=== PATIENT | female | born 1995 | race Caucasian/White ===

== ENCOUNTER 2017-09-28 02:00 | Emergency (ER) | payer BC ==
--- OUTSIDE RECORDS SUMMARY | 2017-09-28 02:13 | XMS REPORT ---
:1995 External Reference #:[id number] Author Organization [employer] Address [address] [place] [address] Phone [phone] Care Team Providers Name Role Phone Zuleyma Rogel MD Primary Care Physician Unavailable Payers Type Date Identification Numbers Payment Provider Subscriber Commercial Effective: Policy Number: BS Facets Elba Torres 2015 [id number] PayID: [id number] [address] [place] [address] Problems Date Description Provider Status Onset: 09/18/2015 Moderate depression Cheryl Adler, N.P. Active Onset: 09/18/2015 Postural orthostatic tachycardia Cheryl Adler, N.P. Active syndrome Family History Date Family Member(s) Problem(s) Comments General Arthritis General Arthritis, Osteo Father Alive And Well Age 52 Mother Alive And Well Age 52 Paternal Grandfather Pancreatic Cancer Age 78 Paternal Grandmother Lung Cancer Arthritis Age 85 Maternal Grandfather Alive And Well Age 84 Maternal Grandmother Uterine Cancer Arthritis Age 79 Social History Type Date Description Comments Marital Status Single Occupation Student ETOH Use Currently consumes alcohol 0 - 3 per week Smoking Patient has never smoked Exercise Type/Frequency Exercises regularly Walks 3 days weekly General Hx Text Allergies, Adverse Reactions, Alerts Date Description Reaction Status Severity Comments 09/15/2015 NKDA active Medications Medication Date Status Form Strength Qnty SIG Indications Ordering Provider Clotrimazole/Betam 09/04 Active Cream 1-0.05% 15gm apply 2 - 3 R21 Cheryl ethasone /2018 times daily Varn, Dipropionate as needed N.P. Neoprene Patella 02/25 Active Misc 2unit use daily M22.2x9 Aneudy Knee s as needed [place] Support/Medium for left M.DJames knee stabilizati on Fludrocortisone Active Tablets 0.1mg 90tab 1 by mouth Aneudy Acetate / s every day Axel Roland Spironolactone Active Tablets 25mg 1 by mouth Unknown /0000 every day Amoxicillin 02/25 Hx Tablets 875mg 20tab 1 tab twice J02.9 s daily x 7 Asuncion - days total M.DJames 07/16 if there is pharyngitis Tamiflu 02/21 Hx Capsules 75mg 10cap take one Stan s capsule AYANNA Hare - once daily 03/03 for days-influe nza prophylaxis Ciprofloxacin HCL 02/12 Hx Tablets 500mg 12tab take one Z71.89 Stan s tablet AYANNA Hare - twice daily 02/17 x 3 days onset of diarrhea a day for 10 days Bupropion HCL 12/03 Hx Tablets 100mg 60tab take 1 F32.9 Cheryl /2017 s tablet by Nayely, - mouth two N.P. 02/12 times daily Escitalopram 05/13 Hx Tablets 10mg 30tab Take 1 Stan Oxalate s Tablet By AYANNA Hare - Mouth Every Escitalopram 03/02 Hx Tablets 20mg 30tab 1 by mouth Cheryl Oxalate s every day Varn, - N.P. 05/13 Medroxyprogesteron 02/23 Hx Tablets 10mg 10tab one by Cheryl e Acetate s mouth twice Varn, - a day x 5 N.P. Medrol 01/15 Hx TBPK 4mg 21uni as directed R21 ts on package AYANNA Hare - 02/13 Escitalopram 09/21 Hx Tablets 10mg 30tab 1 by mouth Cheryl Oxalate s every day Varn, - N.P. 03/02 Ferrex 28 09/14 Hx Tablets 30tab 1 by mouth R55 Cheryl /2016 s every day Vardeb, - (taking OTC N.P. 02/13 at this /2016 time) Nortriptyline HCL 00 Hx Capsules 10mg 1 tab every Unknown /0000 night for 3 - weeks then 10/09 1 other day Doxycycline Hx Tablets 100mg 60tab one tab q12 Unknown Monohydrate /0000 s hours - 05/11 Midodrine HCL Hx Tablets 2.5mg take one Unknown /0000 tablet - three times 02/13 daily. /2015 Medications Administered in Office Medication Date Status Form Strength Qnty SIG Indications Ordering Provider Influenza Virus 03/03/ Administered Injection Unknown Vaccine 2015 Meningococcal 09/16/ Administered Injection Unknown B,Unspecified 2014 Meningococcal,Un 09/13/ Administered Injection Unknown specified 2014 Influenza Virus 01/27/ Administered Injection Unknown Vaccine 2012 Influenza Virus 12/09/ Administered Injection Unknown Vaccine 2011 Meningococcal,Un 12/05/ Administered Injection Unknown specified 2010 Polio,Unspecifie 11/22/ Administered Injection Unknown d 2000 Polio,Unspecifie 03/18/ Administered Injection Unknown d 1998 Polio,Unspecifie 01/05/ Administered Injection Unknown d 1996 Polio,Unspecifie 10/01/ Administered Injection Unknown d 1996 Immunizations CPT Code Status Date Vaccine Lot # [id number] Given 09/16/2014 Varicella (Chicken Pox) Immunization 02521 Given 12/05/2010 Gardasil (HPV) 23891 Given 12/05/2010 Hepatitis A Vaccine Pediatric/Adolescent Dosage 2 Dose Schedule 57746 Given 06/24/2010 Gardasil (HPV) 62859 Given 08/25/2009 Gardasil (HPV) 47137 Given 06/24/2009 Hepatitis A Vaccine Pediatric/Adolescent Dosage 2 Dose Schedule 52689 Given 10/28/2007 Tdap - Tetanus/Diptheria/Acellular Pertussis 49327 Given 06/22/2002 Varicella (Chicken Pox) Immunization 90252 Given 11/22/2000 Measles Mumps And Rubella MMR 00249 Given 11/22/2000 DTaP Vaccine Younger Than 7 08082 Given 03/18/1998 Hep B Pediatric/Adolescent 66071 Given 11/04/1997 Hib Hboc Conjugate 4 Dose Schedule 43808 Given 11/04/1997 Measles Mumps And Rubella MMR 86222 Given 05/20/1997 Hep B Pediatric/Adolescent 84860 Given 03/18/1997 DTaP Vaccine Younger Than 7 20339 Given 03/18/1997 Hib Hboc Conjugate 4 Dose Schedule 92320 Given 01/05/1997 DTaP Vaccine Younger Than 7 74398 Given 01/05/1997 Hib Hboc Conjugate 4 Dose Schedule 32106 Given 1996 Hep B Pediatric/Adolescent 67499 Given 1996 DTaP Vaccine Younger Than 7 08209 Given 1996 Hib Hboc Conjugate 4 Dose Schedule 70755 Given 1996 Hep B Pediatric/Adolescent Vital Signs Date Vital Result Comment 09/04/2017 Height 64.5 inches 5'4.50" Weight 126.00 lb Heart Rate 64 /min BP Systolic 100 mmHg BP Diastolic 60 mmHg Body Temperature 97.0 F O2 % BldC Oximetry 98 % BMI (Body Mass Index) 21.3 kg/m2 07/17/2017 Height 64.5 inches 5'4.50" Weight 126.00 lb Heart Rate 84 /min BP Systolic Sitting 124 mmHg BP Diastolic Sitting 82 mmHg Respiratory Rate 14 /min Body Temperature 97.9 F Pain Level 0 BMI (Body Mass Index) 21.3 kg/m2 02/25/2017 Height 64.5 inches 5'4.50" Weight 124.38 lb Heart Rate 80 /min BP Systolic Sitting 100 mmHg BP Diastolic Sitting 60 mmHg Respiratory Rate 14 /min Pain Level 1 BMI (Body Mass Index) 21.0 kg/m2 02/12/2017 Height 64.5 inches 5'4.50" Weight 125.00 lb Heart Rate 72 /min BP Systolic Sitting 100 mmHg BP Diastolic Sitting 62 mmHg Body Temperature 97.8 F O2 % BldC Oximetry 98 % BMI (Body Mass Index) 21.1 kg/m2 12/03/2016 Weight 125.25 lb Heart Rate 69 /min BP Systolic 90 mmHg BP Diastolic 60 mmHg Body Temperature 98.5 F O2 % BldC Oximetry 97 % 10/09/2016 Height 64.5 inches 5'4.50" Weight 120.50 lb Heart Rate 88 /min BP Systolic Sitting 92 mmHg BP Diastolic Sitting 70 mmHg Respiratory Rate 14 /min Pain Level 0 BMI (Body Mass Index) 20.4 kg/m2 08/23/2016 Height 64.5 inches 5'4.50" Weight 122.25 lb Heart Rate 80 /min BP Systolic Sitting 120 mmHg BP Diastolic Sitting 82 mmHg Respiratory Rate 14 /min Pain Level 0 BMI (Body Mass Index) 20.7 kg/m2 07/18/2016 Height 64.5 inches 5'4.50" Weight 118.00 lb Heart Rate 100 /min BP Systolic Sitting 110 mmHg BP Diastolic Sitting 64 mmHg Respiratory Rate 14 /min Pain Level 0 BMI (Body Mass Index) 19.9 kg/m2 05/11/2016 Weight 117.00 lb Heart Rate 98 /min BP Systolic 126 mmHg BP Diastolic 88 mmHg O2 % BldC Oximetry 98 % 02/14/2016 Height 64.5 inches 5'4.50" Weight 113.00 lb Heart Rate 84 /min BP Systolic Sitting 120 mmHg BP Diastolic Sitting 80 mmHg Body Temperature 97.9 F Pain Level 0 BMI (Body Mass Index) 19.1 kg/m2 01/16/2016 Weight 112.00 lb Heart Rate 88 /min BP Systolic Sitting 102 mmHg BP Diastolic Sitting 68 mmHg Respiratory Rate 15 /min Body Temperature 97.8 F O2 % BldC Oximetry 98 % 10/06/2015 Height 64.5 inches 5'4.50" 10/06/2015 Weight 110.00 lb Heart Rate 92 /min BP Systolic Sitting 98 mmHg BP Diastolic Sitting 60 mmHg O2 % BldC Oximetry 98 % 09/15/2015 Weight 112.25 lb Heart Rate 82 /min BP Systolic Sitting 104 mmHg BP Diastolic Sitting 82 mmHg O2 % BldC Oximetry 98 % 09/01/2015 Height 63 inches 5'3" Weight 114.00 lb Heart Rate 84 /min BP Systolic Sitting 118 mmHg BP Diastolic Sitting 70 mmHg Body Temperature 98.2 F O2 % BldC Oximetry 98 % BMI (Body Mass Index) 20.2 kg/m2 Results Test Date Test Result H/L Range Note Laboratory test finding 07/25/2017 Erythrocyte Sed Rate 18 mm/Hr High 0- 14 1 C Reactive Protein < 1.00 mg/L < 5.00 2 Nuclear AB (Neri) By Ifa 07/25/2017 Nuclear Ab (Neri) by Ifa, Positive 1:160 3 Igg IgG Neri Titer: 1:160 Neri Pattern: Nuclear Dots 4 Laboratory test finding 07/25/2017 Anti Double Stranded Dna AB <12.3 IU/mL 5 Complement C3 110 mg/dL 75 - 175 6 Complement C4 17 mg/dL 14 - 40 7 Cortisol 5.28 g/dL 8 CBC Auto Diff 07/25/2017 White Blood Count 6.6 10^3/uL 3.5-10.8 Red Blood Count 4.20 10^6/uL 4.0-5.4 Hemoglobin 13.1 g/dL 12.0-16.0 Hematocrit 38 % 35-47 Mean Corpuscular Volume 91 fL 80-97 Mean Corpuscular Hemoglobin 31 pg 27-31 Mean Corpuscular HGB Conc 34 g/dL 31-36 Red Cell Distribution Width 12 % 10.5-15 Platelet Count 215 10^3/uL 150-450 Mean Platelet Volume 8.6 um3 7.4-10.4 Abs Neutrophils 4.1 10^3/uL 1.5-7.7 Abs Lymphocytes 1.8 10^3/uL 1.0-4.8 Abs Monocytes 0.5 10^3/uL 0-0.8 Abs Eosinophils 0.2 10^3/uL 0-0.6 Abs Basophils 0 10^3/uL 0-0.2 Abs Nucleated RBC 0 10^3/uL Granulocyte % 62.4 % 38-83 Lymphocyte % 27.1 % 25-47 Monocyte % 7.3 % High 0-7 Eosinophil % 2.6 % 0-6 Basophil % 0.6 % 0-2 Nucleated Red Blood Cells % 0 Comp Metabolic Panel 07/25/2017 Sodium 137 mmol/L Low 139-145 Potassium 4.1 mmol/L 3.5-5.0 Chloride 101 mmol/L 101-111 Co2 Carbon Dioxide 27 mmol/L 22-32 Anion Gap 9 mmol/L 2-11 Glucose 80 mg/dL 70-100 Blood Urea Nitrogen 18 mg/dL 6-24 Creatinine 0.60 mg/dL 0.51-0.95 BUN/Creatinine Ratio 30.0 High 8-20 Calcium 9.6 mg/dL 8.6-10.3 Total Protein 7.2 g/dL 6.4-8.9 Albumin 4.7 g/dL 3.2-5.2 Globulin 2.5 g/dL 2-4 Albumin/Globulin Ratio 1.9 1-3 Total Bilirubin 0.30 mg/dL 0.2-1.0 Alkaline Phosphatase 49 U/L 34-104 Alt 13 U/L 7-52 Ast 16 U/L 13-39 Egfr Non- 127.5 >60 Egfr 163.9 >60 9 Laboratory test finding 07/25/2017 Vitamin D, 1,25 Dihydroxy 60 pg/mL 18- 78 10 Vitamin B12 425 pg/mL 180-914 11 Laboratory test 02/25/2017 Culture Throat SEE RESULT BELOW 12, 13 finding Laboratory test 10/09/2016 Erythrocyte Sed Rate 14 mm/Hr 0-14 14 finding C Reactive Protein < 1.00 mg/L < 5.00 15 CBC Auto Diff 10/09/2016 White Blood Count 6.0 10^3/uL 3.5-10.8 Red Blood Count 4.23 10^6/uL 4.0-5.4 Hemoglobin 13.3 g/dL 12.0-16.0 Hematocrit 39 % 35-47 Mean Corpuscular Volume 92 fL 80-97 Mean Corpuscular Hemoglobin 32 pg High 27-31 Mean Corpuscular HGB Conc 34 g/dL 31-36 Red Cell Distribution Width 13 % 10.5-15 Platelet Count 197 10^3/uL 150-450 Mean Platelet Volume 8 um3 7.4-10.4 Abs Neutrophils 3.6 10^3/uL 1.5-7.7 Abs Lymphocytes 1.8 10^3/uL 1.0-4.8 Abs Monocytes 0.5 10^3/uL 0-0.8 Abs Eosinophils 0.1 10^3/uL 0-0.6 Abs Basophils 0 10^3/uL 0-0.2 Abs Nucleated RBC 0 10^3/uL Granulocyte % 59.6 % 38-83 Lymphocyte % 29.9 % 25-47 Monocyte % 7.8 % 1-9 Eosinophil % 1.9 % 0-6 Basophil % 0.8 % 0-2 Nucleated Red Blood Cells % 0 Comp Metabolic Panel 10/09/2016 Sodium 138 mmol/L 133-145 Potassium 4.6 mmol/L 3.5-5.0 Chloride 101 mmol/L 101-111 Co2 Carbon Dioxide 32 mmol/L 22-32 Anion Gap 5 mmol/L 2-11 Glucose 80 mg/dL 70-100 Blood Urea Nitrogen 13 mg/dL 6-24 Creatinine 0.64 mg/dL 0.51-0.95 BUN/Creatinine Ratio 20.3 High 8-20 Calcium 10.0 mg/dL 8.6-10.3 Total Protein 7.2 g/dL 6.4-8.9 Albumin 4.9 g/dL 3.2-5.2 Globulin 2.3 g/dL 2-4 Albumin/Globulin Ratio 2.1 1-3 Total Bilirubin 0.40 mg/dL 0.2-1.0 Alkaline Phosphatase 56 U/L 34-104 Alt 20 U/L 7-52 Ast 23 U/L 13-39 Egfr Non- 118.3 >60 Egfr 152.1 >60 16 Laboratory test finding 10/09/2016 Cortisol 10.01 g/dL 17 Vitamin D, 1,25 Dihydroxy 87 pg/mL 18-78 18 TSH (Thyroid Stim Horm) 2.02 mcIU/mL 0.34-5.60 19 Celiac Hla DQ1/DQ2 10/09/2016 Hla-Dqa1 SEE BELOW 20 Hla-DQB1 SEE BELOW 21 Celiac Gene Pairs Present? Yes Celiac Gene Interpretation See Comment 22 Nuclear AB (Neri) By Ifa 10/09/2016 Nuclear Ab (Neri) by Ifa, Positive 1:160 23 Igg IgG Neri Titer: 1:80 Neri Pattern: Speckled Neri Titer 2: 1:160 Neri Pattern 2: Nuclear Dots 24 Thyroid Function [place] 07/25/2016 Thyroid Stim Hormone 1.2 mIU/L 0.5- 4.3 25 Laboratory test finding 07/25/2016 HCG < 0.60 mIU/mL 26 Prolactin 4.3 ng/mL 1.0-25.0 FSH 3.2 mIU/mL 27 Lutenizing Hormone 3.2 mcIU/mL 28 Nuclear AB (Neri) By Ifa 07/25/2016 Nuclear Ab (Neri) by Ifa, Positive 1:320 29 Igg IgG Neri Titer: 1:320 Neri Pattern: Nuclear Dots 30 Laboratory test finding 07/25/2016 Complement C3 103 mg/dL 75 - 175 31 Complement C4 16 mg/dL 14 - 40 32 C Reactive Protein < 1.00 mg/L < 5.00 33 Anti Double Stranded Dna AB <12.3 IU/mL 34 Lyme Western Blot 02/14/2016 Lyme Disease IgG Ab WB Negative Negative Lyme Disease IgG Bands Present No bands detecte <SEE NOTE> kDa 35 Lyme Disease IgM Ab WB Negative Negative Lyme Disease IgM Bands Present No bands detecte <SEE NOTE> kDa 36 Lyme Disease Interpretation See Comment 37 Laboratory test finding 02/14/2016 TSH (Thyroid Stim Horm) 1.05 mcIU/mL 0.34-5.60 Free T4 (Free Thyroxine) 0.76 ng/dL 0.61-1.12 T3 Free 2.70 pg/mL 2.5-3.9 Free Estradiol 02/14/2016 Percent Free Estradiol 1.6 % 38 Free Estradiol 0.51 pg/mL 39 Sex Hormone Binding Globulin 88.9 nmol/L 40 Total Estradiol 32 pg/mL 41 FSH And LH 02/14/2016 FSH (Follicle Stim Hormone) 6.2 mIU/mL 42 LH (Lutenizing Hormone) 4.7 ?IU/mL 43 Laboratory test finding 02/14/2016 C Reactive Protein < 1.00 mg/L < 5.00 44 Thyroglobulin AB <1.8 IU/mL <4.0 45 Celiac Panel 02/14/2016 Tissue Transglutaminase IgA Ab <1.2 U/mL 46 Immunoglobulin A 132 mg/dL 61 - 356 Celiac Interpretation See Comment 47 Laboratory test finding 02/14/2016 Nuclear Ab (Neri) by Ifa, 1:160 <1:40 48 IgG CBC Auto Diff 01/16/2016 White Blood Count 4.0 10^3/uL 3.5-10.8 Red Blood Count 3.95 10^6/uL Low 4.0-5.4 Hemoglobin 12.7 g/dL 12.0-16.0 Hematocrit 36 % 35-47 Mean Corpuscular Volume 92 fL 80-97 Mean Corpuscular Hemoglobin 32 pg High 27-31 Mean Corpuscular HGB Conc 35 g/dL 31-36 Red Cell Distribution Width 13 % 10.5-15 Platelet Count 182 10^3/uL 150-450 Mean Platelet Volume 9 um3 7.4-10.4 Abs Neutrophils 2.1 10^3/uL 1.5-7.7 Abs Lymphocytes 1.5 10^3/uL 1.0-4.8 Abs Monocytes 0.3 10^3/uL 0-0.8 Abs Eosinophils 0.1 10^3/uL 0-0.6 Abs Basophils 0 10^3/uL 0-0.2 Abs Nucleated RBC 0 10^3/uL Granulocyte % 52.0 % 38-83 Lymphocyte % 36.6 % 25-47 Monocyte % 7.6 % 1-9 Eosinophil % 3.2 % 0-6 Basophil % 0.6 % 0-2 Nucleated Red Blood Cells % 0.1 Cardiolipin Igg/Igm 10/06/2015 Phospholipid Ab IgM, S < 4.0 MPL 49 Phospholipid Ab IgG < 4.0 GPL 50 Celiac Panel 10/06/2015 Tissue Transglutaminase IgA Ab <1.2 U/mL 51 Immunoglobulin A 133 mg/dL 61 - 356 Celiac Interpretation See Comment 52 Laboratory test finding 10/06/2015 Aldolase 4.6 U/L <7.7 53 Anti Nuclear Antibody 2.5 U 54 Anca Panel For Vasculitis 10/06/2015 Myeloperoxidase AB <0.2 U 55 Proteinase 3 AB <0.2 U 56 Miriam Igg AB Reflex 10/06/2015 SS-A/Ro Antibody <0.2 U 57 SS-B/La Antibody <0.2 U 58 Sm (Prieto) IgG Antibody <0.2 U 59 U1-nRNP Antibody <0.2 U 60 Scl-70 (Scleroderma) Antibody <0.2 U 61 Trena-1 Antibody <0.2 U 62 Laboratory test finding 10/06/2015 Anti Double Stranded Dna AB <12.3 IU/mL 63 C Reactive Protein < 1.00 mg/L < 5.00 64 Erythrocyte Sed Rate 16 mm/Hr High 0-14 Complement C3 76 mg/dL 75 - 175 65 Complement C4 11 mg/dL 14 - 40 66 Creatine Kinase(CK) 48 U/L 10-223 Igg Subclasses 10/06/2015 Total IgG 942 mg/dL 767 - 1590 Immunoglobulin G1 512 mg/dL 341 - 894 Immunoglobulin G2 253 mg/dL 171 - 632 Immunoglobulin G3 45.6 mg/dL 67 Immunoglobulin G4 9.1 mg/dL 68 Laboratory test finding 10/06/2015 T3 Free 2.80 pg/mL 2.5-3.9 Methylmalonic Acid Mma 0.19 nmol/mL <=0.40 69 Cortisol 6.31 ?g/dL 70 Ferritin 21.4 ng/mL 11-307 Angiotensin Converting Enzyme 23 U/L 8 - 53 71 Cyclic Citrullinated Pep Igg <15.6 U 72 Hla B27 10/06/2015 Hla B27 Negative 73 Hla B27 Interp See Comment 74 Laboratory test 10/06/2015 Immunoglobulin G (Igg) TNP () 75 finding Laboratory test 09/01/2015 TSH (Thyroid Stim Horm) 0.55 mcIU/mL 0.34- 5.60 finding Vitamin B12 437 pg/mL 180-914 76 Anti Nuclear Antibody 2.8 U 77 Lyme Disease Serology Positive Negative 78 Rheumatoid Factor <15 IU/mL <15 79 Cyclic Citrullinated Pep Igg 17.6 U 80 Abdulkadir Sparrow Comprehensive 09/01/2015 Ebv Capsid Ag IgG Ab Positive Negative Ebv Capsid Ag IgM Ab Negative Negative Abdulkadir-Sparrow Nuclear Antigen Positive Negative Laboratory test finding 09/01/2015 Vitamin D Total 25(Oh) 30.0 ng/mL 30- 50 Lyme Western Blot 09/01/2015 Lyme Disease IgG Ab WB Negative Negative Lyme Disease IgG Bands Present p66, p41, kDa Lyme Disease IgM Ab WB Negative Negative Lyme Disease IgM Bands Present No bands detecte <SEE NOTE> kDa 81 Lyme Disease Interpretation See Comment 82 GC/Chlamydia Amplified Rna 09/01/2015 Chlamydia trachomatis Rna Negative Negative Neisseria gonorrhoeae (GC) Rna Negative Negative GC/Chlamydia Amplified Rna 09/01/2015 Chlamydia trachomatis Negative Negative 83 Rna Neisseria gonorrhoeae (GC) Rna Negative Negative 83 Iron & Iron Binding Capacity 09/01/2015 Iron 77 g/dL 50-212 Unsaturated Iron Binding 347 g/dL Total Iron Binding Capacity 424 g/dL 250-450 % Iron Saturation 18 % 15-55 Laboratory test finding 09/01/2015 Ferritin 11.0 ng/mL 11-307 Comp Metabolic Panel 09/01/2015 Sodium 139 mmol/L 133-145 Potassium 4.4 mmol/L 3.5-5.0 Chloride 103 mmol/L 101-111 Co2 Carbon Dioxide 30 mmol/L 22-32 Anion Gap 6 mmol/L 2-11 Glucose 82 mg/dL 70-100 Blood Urea Nitrogen 8 mg/dL 6-24 Creatinine 0.73 mg/dL 0.51-0.95 BUN/Creatinine Ratio 11.0 8-20 Calcium 9.4 mg/dL 8.6-10.3 Total Protein 6.9 g/dL 6.4-8.9 Albumin 4.3 g/dL 3.2-5.2 Globulin 2.6 g/dL 2-4 Albumin/Globulin Ratio 1.7 1-3 Total Bilirubin 0.40 mg/dL 0.2-1.0 Alkaline Phosphatase 37 U/L 34-104 Alt 22 U/L 7-52 Ast 21 U/L 13-39 Egfr Non- 102.7 >60 Egfr 132.1 >60 84 CBC Auto Diff 09/01/2015 White Blood Count 3.7 10^3/uL 3.5-10.8 Red Blood Count 4.07 10^6/uL 4.0-5.4 Hemoglobin 12.1 g/dL 12.0-16.0 Hematocrit 37 % 35-47 Mean Corpuscular Volume 90 fL 80-97 Mean Corpuscular Hemoglobin 30 pg 27-31 Mean Corpuscular HGB Conc 33 g/dL 31-36 Red Cell Distribution Width 13 % 10.5-15 Platelet Count 258 10^3/uL 150-450 Mean Platelet Volume 9 um3 7.4-10.4 Abs Neutrophils 1.9 10^3/uL 1.5-7.7 Abs Lymphocytes 1.5 10^3/uL 1.0-4.8 Abs Monocytes 0.2 10^3/uL 0-0.8 Abs Eosinophils 0.1 10^3/uL 0-0.6 Abs Basophils 0 10^3/uL 0-0.2 Abs Nucleated RBC 0 10^3/uL Granulocyte % 50.8 % 38-83 Lymphocyte % 39.9 % 25-47 Monocyte % 5.4 % 1-9 Eosinophil % 2.6 % 0-6 Basophil % 1.3 % 0-2 Nucleated Red Blood Cells % 0 1 Please check labs this week 2 Acute inflammation: >10.00 3 REFERENCE VALUE <1:80 (Negative) 4 Test Performed by: [address] [address] 5 REFERENCE VALUE <30.0 (Negative) Test Performed by: [address] [address] 6 Test Performed by: [address] [address] 7 Test Performed by: [address] [address] 8 AM 8.7-22.4 PM <10 9 Because ethnic data is not always readily available, this report includes an eGFR for both -Americans and non- Americans. The National Kidney Disease Education Program (NKDEP) does not endorse the use of the MDRD equation for patients that are not between the ages of 18 and 70, are , have extremes of body size, muscle mass, or nutritional status, or are non- or non-. According to the National Kidney Foundation, irrespective of diagnosis, the stage of the disease is based on the level of kidney function: Stage Description GFR(mL/min/1.73 m(2)) 1 Kidney damage with normal or decreased GFR 90 2 Kidney damage with mild decrease in GFR 60-89 3 Moderate decrease in GFR 30-59 4 Severe decrease in GFR 15-29 5 Kidney failure <15 (or dialysis) 10 ADDITIONAL INFORMATION This test was developed and its performance characteristics determined by [facility] in a manner consistent with CLIA requirements. This test has not been cleared or approved by the U.S. Food and Drug Administration. Test Performed by: [facility] [address] [place] [address] 11 Normal Range 180 to 914 Indeterminate Range 145 to 180 Deficient Range <145 12 [id number] 13 SEE RESULT BELOW Name: JANETH TORRES : [address]: Aneudy Roland MD Acct: [id number] Unit: [id number] AGE: 21 Location: [facility] Re02/25/17 SEX: F Status: REG REF SPEC: [id number] JOY: 02/25/17-[address] [facility] [address]: Aneudy Roland MD REQ: [id number] RECD: 02/25/17 STATUS: COMP _ SOURCE: THROAT SPDESC: ORDERED: Throat Culture COMMENTS: [id number] Procedure Result Reported Site Throat Culture Final 02/27/17- 1131 ML Organism 1 NORMAL LAST Quantity 3+ Throat cultures are clinically indicated to detect the presence of group A strep, arcanobacterium and yeast. In certain cases, predominating organisms will be reported. * ML - MAIN LAB ([facility]) . END OF REPORT * ML=Testing performed at Main Lab DEPARTMENT OF PATHOLOGY, [address] [place] [address] Bartolome Palacios M.D. Director [facility] # [id number] 14 Please check this week 15 Acute inflammation: >10.00 16 Because ethnic data is not always readily available, this report includes an eGFR for both -Americans and non- Americans. The National Kidney Disease Education Program (NKDEP) does not endorse the use of the MDRD equation for patients that are not between the ages of 18 and 70, are , have extremes of body size, muscle mass, or nutritional status, or are non- or non-. According to the National Kidney Foundation, irrespective of diagnosis, the stage of the disease is based on the level of kidney function: Stage Description GFR(mL/min/1.73 m(2)) 1 Kidney damage with normal or decreased GFR 90 2 Kidney damage with mild decrease in GFR 60-89 3 Moderate decrease in GFR 30-59 4 Severe decrease in GFR 15-29 5 Kidney failure <15 (or dialysis) 17 AM 8.7-22.4 PM <10 18 ADDITIONAL INFORMATION This test was developed and its performance characteristics determined by [facility] in a manner consistent with CLIA requirements. This test has not been cleared or approved by the U.S. Food and Drug Administration. Test Performed by: [id number] - [address] [address] 19 Please check this week 20 RESULT: 01:02,05:01 REFERENCE VALUE Not Applicable 21 RESULT: 02:01,06:02 DQ Serologic Equivalent: 2,6 REFERENCE VALUE Not Applicable 22 These genes are permissive for celiac disease. The absence of HLA celiac permissive genes would make the presence of celiac disease unlikely. However, these genes can also be present in the normal population. ADDITIONAL INFORMATION Method: Molecular typing of HLA antigens performed using reverse SSOP and/or SSP methods, reported as serological equivalents and low to medium resolution molecular values. Performing Laboratory CLIA# [id number] Test Performed by: [place] [id number] REFERENCE VALUE <1:80 (Negative) 24 Test Performed by: [place] [address] 25 Test Performed by: [place] [address] 26 <5.0 Negative 5.0 - 25.0 Indeterminate (Repeat testing recommended after 72 hours) >25.0 Positive Perimenopausal women can display HCG levels of up to 20 mIU/mL 27 Normally menstruating females - Follicular phase 3 - 9 - Mid-cycle peak 4 - 23 - Luteal phase 1 - 6 Postmenopausal females 16 - 114 28 Normally menstruating females - Follicular Phase 1 - 18 - Mid-Cycle Peak 24 - 105 - Luteal Phase 0.6 - 20 Postmenopausal females 15 - 62 29 REFERENCE VALUE <1:80 (Negative) 30 Test Performed by: [place] [address] 31 Test Performed by: [place] [address] 32 Test Performed by: [place] [address] 33 Acute inflammation: >10.00 34 REFERENCE VALUE <30.0 (Negative) Test Performed by: [place] [address] 35 No bands detected 36 No bands detected 37 Specific serologic response to B. burgdorferi infection is not detected, but cannot rule out early infection during which low or undetectable antibody levels to B. burgdorferi may be present. If clinically indicated, a new serum specimen should be submitted in 7-14 days. ADDITIONAL INFORMATION CDC criteria require >=5 bands for IgG or >=2 bands for IgM for the Immunoblot to be considered positive. Bands (e.g.,p41) may be detected in patients without Lyme disease, and patterns not meeting the CDC criteria should be interpreted with caution. Immunoblot should be ordered only on specimens that are positive or equivocal by a FDA-licensed Lyme disease antibody screening test (e.g., EIA). Test Performed by: [place] [address] Drug Room Operator: Shalom Clayton II, M.D., Ph.D. 38 Reference Range: Adult Females: 1.6 - 3.6 39 Reference Range: Adult Females: 0.6 - 7.1 40 Reference Range: Pubertal: 36.0 - 125.0 20 - 49y: 24.6 - 122.0 >49y: 17.3 - 125.0 Test Performed by: [facility] [address] [place] [address] 41 Reference Range: Adult Females Follicular: 30 - 100 Luteal: 70 - 300 Postmenopausal: <15 42 Normally menstruating females - Follicular phase 3 - 9 - Mid-cycle peak 4 - 23 - Luteal phase 1 - 6 Postmenopausal females 16 - 114 43 Normally menstruating females - Follicular Phase 1 - 18 - Mid-Cycle Peak 24 - 105 - Luteal Phase 0.6 - 20 Postmenopausal females 15 - 62 44 Acute inflammation: >10.00 45 ADDITIONAL INFORMATION The thyroglobulin antibody testing method is an immunoenzymatic assay manufactured by [employer] and performed on the [employer] DXI 800. Values obtained from different assay methods or kits may be different and cannot be used interchangeably. The results cannot be interpreted as absolute evidence for the presence or absence of malignant disease. Test Performed by: [place] [address] Drug Room Operator: Shalom Clayton II, M.D., Ph.D. 46 REFERENCE VALUE <4.0 (Negative) Test Performed by: [place] [address] Drug Room Operator: Shalom Clayton II, M.D., Ph.D. 47 Negative serology. Celiac disease unlikely. However, approximately 10% of patients with celiac disease are seronegative. Also, patients who are already adhering to a gluten-free diet may be seronegative. If celiac disease is highly clinically suspected, consider HLA-DQ typing. Test Performed by: [facility] [address] Drug Room Operator: Shalom Clayton II, M.D., Ph.D. 48 Mixed Homogeneous and Speckled pattern. INTERPRETIVE INFORMATION: NERI by IFA, IgG Anti-nuclear antibodies (NERI) are seen in a variety of systemic rheumatic diseases and are determined by indirect fluorescence assay (IFA) using HEp-2 substrate with an IgG-specific conjugate. NERI titers less than or equal to 1:80 have variable relevance while titers greater than or equal to 1:160 are considered clinically significant. These antibodies may precede clinical disease onset; however, healthy individuals and those with advanced age have been reported to be positive for NERI. When observed, one of the five basic patterns is reported: homogeneous, peripheral/rim, speckled, centromere, or nucleolar. If cytoplasmic fluorescence is observed, it is noted. IFA methodology is subjective and has occasionally been shown to lack sensitivity for anti-SSA/Ro antibodies. Negative results do not necessarily rule out the presence of SSc. If clinical suspicion remains, consider further testing for U3-TOBACCO ROLLER, PM/Scl, or Th/To antibodies associated with SSc. Performed by [facility], [address] [place] [address] [email or web address], Issa Jimenez MD - Lab. Director Test Performed by: [facility] [address] [place] [address] 49 REFERENCE VALUE <10.0 (Negative) 50 REFERENCE VALUE <10.0 (Negative) Test Performed by: [place] [address] Drug Room Operator: Shalom Clayton II, M.D., Ph.D. 51 REFERENCE VALUE <4.0 (Negative) Test Performed by: [place] [address] Drug Room Operator: Shalom Clayton II, M.D., Ph.D. 52 Negative serology. Celiac disease unlikely. However, approximately 10% of patients with celiac disease are seronegative. Also, patients who are already adhering to a gluten-free diet may be seronegative. If celiac disease is highly clinically suspected, consider HLA-DQ typing. Test Performed by: [place] [address] Drug Room Operator: Shalom Clayton II, M.D., Ph.D. 53 Test Performed by: [place] [address] Drug Room Operator: Shalom Clayton II, M.D., Ph.D. 54 Interpretation: Weak Positive (1.1-2.9) REFERENCE VALUE <=1.0 (Negative) Test Performed by: [place] [address] Drug Room Operator: Shalom Clayton II, M.D., Ph.D. 55 REFERENCE VALUE <0.4 (Negative) 56 REFERENCE VALUE <0.4 (Negative) Test Performed by: [address] [address] Drug Room Operator: Shalom Clayton II, M.D., Ph.D. 57 REFERENCE VALUE <1.0 (Negative) 58 REFERENCE VALUE <1.0 (Negative) 59 REFERENCE VALUE <1.0 (Negative) 60 REFERENCE VALUE <1.0 (Negative) 61 REFERENCE VALUE <1.0 (Negative) 62 REFERENCE VALUE <1.0 (Negative) Test Performed by: [address] [address] Drug Room Operator: Shalom Clayton II, M.D., Ph.D. 63 REFERENCE VALUE <30.0 (Negative) Test Performed by: [place] [address] Drug Room Operator: Shalmo Clayton II, M.D., Ph.D. 64 Acute inflammation: >10.00 65 Test Performed by: [place] [address] Drug Room Operator: Shalom Clayton II, M.D., Ph.D. 66 Test Performed by: [place] [address] Drug Room Operator: Shalom Clayton II, M.D., Ph.D. 67 REFERENCE VALUE 18.4 - 106.0 68 REFERENCE VALUE 2.4 - 121.0 Test Performed by: [place] [address] Drug Room Operator: Shalom Clayton II, M.D., Ph.D. 69 Test Performed by: [place] [address] Drug Room Operator: Shalom Clayton II, M.D., Ph.D. 70 AM 8.7-22.4 PM <10 71 Test Performed by: [place] [address] Drug Room Operator: Shalom Clayton II, M.D., Ph.D. 72 REFERENCE VALUE <20.0 (Negative) Test Performed by: [place] [address] Drug Room Operator: Shalom Clayton II, M.D., Ph.D. 73 REFERENCE VALUE Not Applicable 74 RESULT: HLA-B27 antigen was not detected. ADDITIONAL INFORMATION Method: Flow Cytometry Performing Laboratory CLIA# [id number] Test Performed by: [place] [address] Drug Room Operator: Shalom Clayton II, M.D., Ph.D. 75 Immunoglobulin G (IgG), S was cancelled on 10/08/2015 at 09:10; Test cancelled by RBS rule <IGGS2> Reason: Test IGG is cancelled due to be ordered with Test IGGS Test Performed by: [place] [address] Drug Room Operator: Shalom Clayton II, M.D., Ph.D. 76 Normal Range 180 to 914 Indeterminate Range 145 to 180 Deficient Range <145 77 Interpretation: Weak Positive (1.1-2.9) REFERENCE VALUE <=1.0 (Negative) Test Performed by: [place] [address] Drug Room Operator: Shalom Clayton II, M.D., Ph.D. 78 Not diagnostic. Supplemental testing ordered by reflex. Test Performed by: [place] [address] Drug Room Operator: Shalom Clayton II, M.D., Ph.D. 79 Test Performed by: [place] [address] Drug Room Operator: Shalom Clayton II, M.D., Ph.D. 80 REFERENCE VALUE <20.0 (Negative) Test Performed by: [facility] - [address] [address] Drug Room Operator: Shalom Clayton II, M.D., Ph.D. 81 No bands detected 82 Specific serologic response to B. burgdorferi infection is not detected, but cannot rule out early infection during which low or undetectable antibody levels to B. burgdorferi may be present. If clinically indicated, a new serum specimen should be submitted in 7-14 days. ADDITIONAL INFORMATION CDC criteria require >=5 bands for IgG or >=2 bands for IgM for the Immunoblot to be considered positive. Bands (e.g.,p41) may be detected in patients without Lyme disease, and patterns not meeting the CDC criteria should be interpreted with caution. Immunoblot should be ordered only on specimens that are positive or equivocal by a FDA-licensed Lyme disease antibody screening test (e.g., EIA). Test Performed by: [facility] - [address] [address] Drug Room Operator: Shalom Clayton II, M.D., Ph.D. 83 [id number] Because ethnic data is not always readily available, this report includes an eGFR for both -Americans and non- Americans. The National Kidney Disease Education Program (NKDEP) does not endorse the use of the MDRD equation for patients that are not between the ages of 18 and 70, are , have extremes of body size, muscle mass, or nutritional status, or are non- or non-. According to the National Kidney Foundation, irrespective of diagnosis, the stage of the disease is based on the level of kidney function: Stage Description GFR(mL/min/1.73 m(2)) 1 Kidney damage with normal or decreased GFR 90 2 Kidney damage with mild decrease in GFR 60-89 3 Moderate decrease in GFR 30-59 4 Severe decrease in GFR 15-29 5 Kidney failure <15 (or dialysis) Procedures Date CPT Code Description Status 10/10/2015 70635 Holter Monitor Review (24 hr)dr review & interp only Completed 10/06/2015 90298 ECG Monitor/Recording W/Visual Superimposition Scanning Completed 10/06/2015 46128 EKG Tracing & Interpretation Completed Encounters Type Date Location Provider CPT E/M Dx Office Visit 07/17/2017 [facility] Aneudy Roland M.D. 92115 M35.9 1:20p [facility] R80.2 Z79.899 R20.8 Office Visit 02/25/2017 2:00p [facility] Of [place], [address] M35.9 Nieves Reyna J02.9 M22.2x9 R53.83 Office Visit 02/12/2017 10:20a [facility] [place] [address] Z71.89 - [place] Office Visit 12/03/2016 11:40a [facility] Cheryl Adler, N.P. [address] F32.9 - [place] N91.2 Office Visit 10/09/2016 2:40p [facility] [place], [address] I49.8 Nieves Reyna R76.0 R53.83 R68.2 Office Visit 08/23/2016 2:40p [facility] [place], [address] I95.1 Nieves Reyna R76.0 M35.9 Office Visit 07/18/2016 10:00a [facility] [address] I95.1 Nieves Reyna R76.0 N91.2 R53.83 Office Visit 05/11/2016 4:00p [facility] Cheryl Adler, N.P. [address]258 F32.9 - [place] N91.2 Office Visit 02/14/2016 1:00p [facility] [address] R76.0 Nieves Torres.DJames I95.1 R53.83 N91.0 Office Visit 01/16/2016 2:20p [facility] [place] [address] R21 [place] Office Visit 10/06/2015 4:00p [facility] [address] R76.0 Nieves Torres.DJames R53.83 R20.8 M79.1 Office Visit 10/06/2015 10:40a [facility] - Cheryl Adler, N.P. [address] R55 [place] R53.83 E61.1 Office Visit 09/15/2015 10:40a [facility] Cheryl Nayely, N.P. [address] R53.83 - [place] R76.0 F32.9 Office Visit 09/01/2015 10:40a [facility] Cheryl Adler, N.P. [address] R53.83 - [place] N92.1 M25.50 N94.3 Z11.3 Plan of Care Future Appointment(s):10/07/2017 2:20 pm - Aneudy Roland M.D. at [facility]09/04/2017 - Cheryl Adler, N.P.Z30.09 Encounter for oth general coun and advice on contraceptionComments:I have referred you to Dr Frazier, a belt molder to discusss IUDs.Referral:Sabas Fraizer MD, electric switch tester/Phys/ AqtoeX43.8 Other acneComments:For your acne I think it's reasonable to try a higher dose of Spironolactone. IF it doesn't help or it causes your POTS to act up, then go to the Accutane. You will definitely need control if youstart this.R21 Rash and other nonspecific skin eruptionNew Medication:Clotrimazole/ Betamethasone Dipropionate 1-0.05 %Comments:For your rash I have sent a prescription to the pharmacy for Lotrisone cream. Apply this 2 - 3 timesdaily until your skin clears. If this makes it worse, please stop it and restart the Mupirocin.
[2017-09-28] MEDS ORDERED: Cephalexin CAP* 500 MG PO ONE (03:06)
--- NOTE | 2017-09-28 03:08 | ED ---
Head Injury - HPI Summary HPI Summary: Complains of fall forward and hitting chin on chronic floor. Denies trauma to mouth, face, MORRIS, LOC, vision change, N/V, EMS, neck pain, change in jaw full range of motion. Admits to EtOH, but is alert oriented, responds appropriately. - History Of Current Complaint Chief Complaint: EDLacSutureRecheck Stated Complaint: CHIN LAC Time Seen by Provider: 09/28/17 02:32 Hx Obtained From: Patient Mechanism Of Injury: Fall From A Standing Position Onset/Duration: Started Hours Ago Severity Currently: Mild Severity Initially: Mild Pain Intensity: 2 Pain Scale Used: 0-10 Numeric - Allergies/Home Medications Allergies/Adverse Reactions: Allergies Allergy/AdvReac Type Severity Reaction Status Date / Time No Known Allergies Allergy Unverified 09/28/17 02:12 Home Medications: Home Medications Fludrocortisone Acetate TAB* [Florinef TAB*] 0.1 mg PO DAILY 09/28/17 [History Confirmed 09/28/17] Spironolactone 100 mg PO DAILY 09/28/17 [History Confirmed 09/28/17] PMH/Surg Hx/FS Hx/Imm Hx Endocrine/Hematology History: Denies: Hx Anticoagulant Therapy Cardiovascular History: Denies: Hx Cardiac Arrest History: Denies: Hx Dialysis Neurological History: Denies: Hx CVA Infectious Disease History: No Infectious Disease History: Denies: Traveled Outside the [place] in Last 30 Days - Social History Alcohol Use: Weekly Alcohol Amount: "weekends" Substance Use Type: Reports: None Smoking Status (MU): Never Smoked Tobacco Review of Systems Constitutional: Negative Eyes: Negative ENT: Negative Cardiovascular: Negative Respiratory: Negative Gastrointestinal: Negative Genitourinary: Negative Musculoskeletal: Negative Skin: Other Neurological: Negative Psychological: Normal All Other Systems Reviewed And Are Negative: Yes Physical Exam - Summary Physical Exam Summary: 3 cm laceration just inferior to point of chin. No trauma to tongue, teeth, lips, face, head noted. Full range of motion of neck, jaw. Triage Information Reviewed: Yes Vital Signs On Initial Exam: Initial Vitals Temp Pulse Resp BP Pulse Ox 97.8 F 68 18 101/66 98 09/28/17 02:09 09/28/17 02:09 09/28/17 02:09 09/28/17 02:09 09/28/17 02:09 Vital Signs Reviewed: Yes Appearance: Positive: Well-Appearing Skin: Positive: Warm Head/Face: Positive: Normal Head/Face Inspection Eyes: Positive: Normal ENT: Positive: Normal ENT inspection Neck: Positive: Supple Respiratory/Lung Sounds: Positive: Clear to Auscultation Cardiovascular: Positive: Normal Abdomen Description: Positive: Nontender Musculoskeletal: Positive: Normal Neurological: Positive: Normal Psychiatric: Positive: Normal AVPU Assessment: Alert - Stan Coma Scale Best Eye Response: 4 - Spontaneous Best Motor Response: 6 - Obeys Commands Best Verbal Response: 5 - Oriented Coma Scale Total: 15 Diagnostics - Vital Signs Vital Signs Temp Pulse Resp BP Pulse Ox 09/28/17 02:09 97.8 F 68 18 101/66 98 - Laboratory Lab Statement: Any lab studies that have been ordered have been reviewed, and results considered in the medical decision making process. Head Injury Course/Dx Course Of Treatment: Complains of fall forward and hitting chin on chronic floor. Denies trauma to mouth, face, MORRIS, LOC, vision change, N/V, EMS, neck pain, change in jaw full range of motion. Admits to EtOH, but is alert oriented , responds appropriately. Physical exam:3 cm laceration just inferior to point of chin. No trauma to tongue, teeth, lips, face, head noted. Full range of motion of neck, jaw. Vital signs within normal limits. Wound sutured. Patient started on Keflex here in ED. Rx for same - Diagnoses Provider Diagnoses: Head injury, Facial laceration Discharge - Sign-Out/Discharge Documenting (check all that apply): Patient Departure - Discharge Plan Condition: Stable Disposition: HOME Prescriptions: Cephalexin CAP* [Keflex CAP*] 500 mg PO TID 5 Days #15 cap Patient Education Materials: Care For Your Stitches (ED), Head Injury (ED), Facial Laceration (ED) Referrals: Zuleyma Rogel MD [Primary Care Provider] - Additional Instructions: May wash with warm running water and soap. Do not submerge as in swimming for 4 days. Take antibiotics as directed. Sutures come out in 5-7 days. Return to the ED for any new or worsening symptoms - Billing Disposition and Condition Condition: STABLE Disposition: Home
[2017-09-28 03:26] VITALS: BP 97/58
== END 2017-09-28 03:31 | disposition home or self-care (01) ==
LOC: ED 02:00
DX: S01.81XA Laceration without foreign body of other part of head, initial encounter (principal); S09.93XA Unspecified injury of face, initial encounter; W19.XXXA Unspecified fall, initial encounter; Y92.9 Unspecified place or not applicable
CPT/HCPCS: 12013; 99282; A9270-GY